=== PATIENT | female | born 1990 | race African-American/Black ===

== ENCOUNTER 2016-07-08 15:45 | Emergency (ER) | payer MEDICAID ==
[~2016-07-08] VITALS: Ht 175.3 cm; Wt 110.0 kg
[2016-07-08] MEDS ORDERED: PREN-88 PO (16:03)
[2016-07-08] MEDS ORDERED: SODIUM CHLORIDE 0.9% 1,000 ML IV ONE (17:13)
[2016-07-08 17:26] LABS: BASOPHILS % 0.8 % (0.0-2.0); DIFFERENTIAL COMMENT 0; EOSINOPHILS % 0.5 % (0.0-5.0); MEAN CORPUSCULAR HEMOGLOBIN 23.5 pg (28.0-32.0); MEAN CORPUSCULAR HGB CONC 32.5 g/dL (31.0-37.0); MEAN CORPUSCULAR VOLUME 72.3 fL (81.0-99.0); MEAN PLATELET VOLUME 9.2 fl (7.4-10.4); MONOCYTES % 4.3 % (2.0-8.0); NEUTROPHILS % 79.4 % (40.0-76.0); PLATELET 293 x1000/uL (130-400); RED BLOOD CELL COUNT 5.54 mill/uL (4.2-5.4); RED CELL DISTRIBUTION WIDTH 16.3 % (11.6-14.6); WHITE BLOOD COUNT 9.4 x1000/uL (4.5-11.0)
[2016-07-08 17:39] LABS: ALANINE AMINOTRANSFERASE 17 IU/L (13-61); ALBUMIN 3.2 g/dL (3.4-5.0); ANION GAP 12; CALCIUM 9.6 mg/dL (8.5-10.1); CARBON DIOXIDE 22 mEq/L (21-32); CHLORIDE 106 mEq/L (98-107); INDEX HEMOLYSI 1 (1-3); INDEX ICTERIC 1 (1-4); INDEX LIPEMIC 1 (1-3); TROPONIN I < 0.02 ng/mL (0.00-0.04); UREA NITROGEN BLOOD 6 mg/dL (7-21); eGFR > 60 mL/min (>60)
[2016-07-08 17:40] LABS: CLARITY URINE CLOUDY (CLEAR); COLOR URINE YELLOW (YELLOW); GLUCOSE URINE NEGATIVE (NEGATIVE); KETONES URINE TRACE (NEGATIVE); LEUKOCYTE ESTERASE URINE TRACE (NEGATIVE); NITRITE URINE NEGATIVE (NEGATIVE); OCCULT BLOOD URINE NEGATIVE (NEGATIVE); PH URINE 5.5 (4.5-8.0); PROTEIN URINE NEGATIVE (NEGATIVE); SPECIFIC GRAVITY URINE 1.032 (1.005-1.030)
[2016-07-08 17:59] LABS: B-HCG QUANTITATIVE 32810 mIU/mL (<3)
[2016-07-08 18:06] LABS: RBC URINE 0-2 /hpf (0-2)
[2016-07-08 18:07] LABS: CALCIUM OXALATE CRYSTALS URINE 3+ /lpf; MUCUS URINE 2+ /lpf (< = 2+); SQUAMOUS EPITHELIAL CELL URINE 2+ /lpf (RARE/1+)
[2016-07-08 18:11] LABS: BACTERIA URINE 1+
[2016-07-08] MEDS ORDERED: CEFTRIAXONE 1 G PREMIX 50 ML IV ONE (18:45)
[2016-07-08 21:03] VITALS: BP 125/80
== END 2016-07-08 21:06 | disposition home or self-care (01) ==
LOC: ER 15:46
DX: O23.01 Infections of kidney in pregnancy, first trimester (principal); N12 Tubulo-interstitial nephritis, not specified as acute or chronic; O26.891 Other specified pregnancy related conditions, first trimester; R55 Syncope and collapse; O16.1 Unspecified maternal hypertension, first trimester; Z3A.12 12 weeks gestation of pregnancy; Z98.890 Other specified postprocedural states
CPT/HCPCS: 36415; 76770; 76801; 76817; 80053; 81001; 81025; 82962; 84484; 84702; 85025; 86850; 86900; 86901; 87086; 93005; 96361; 96365; 99285; J0696; J7030; Z7610

== ENCOUNTER 2018-07-01 05:53 | Observation (INO) | payer MEDICAID ==
[~2018-07-01] VITALS: Ht 175.3 cm; Wt 105.2 kg
[~2018-07-01 05:53] MED LIST: PREN-88 PO
== END 2018-07-01 08:45 | disposition home or self-care (01) ==
LOC: ER 05:53 → 8 EST LDRP 06:39 → UNDOADMOB 06:39 → UNDODISOB 08:45
PROVIDERS: ADMIT Obstetrics & Gynecology; ATTEND Obstetrics & Gynecology
DX: O26.892 Other specified pregnancy related conditions, second trimester (principal); R10.30 Lower abdominal pain, unspecified; R10.2 Pelvic and perineal pain; Z3A.21 21 weeks gestation of pregnancy
CPT/HCPCS: 76805; 99281; G0378

== ENCOUNTER 2018-08-22 15:12 | Emergency (ER) | payer MEDICAID ==
[~2018-08-22] VITALS: Ht 175.3 cm; Wt 107.0 kg
[2018-08-22 16:27] VITALS: BP 130/70
[2018-08-22] MEDS ORDERED: CEFTRIAXONE SODIUM 250 MG/VIAL IM ONE (17:15)
[2018-08-22] MEDS ORDERED: AZITHROMYCIN 500 MG TABLET PO ONE (17:15)
[2018-08-22 17:30] LABS: CLARITY URINE TURBID (CLEAR); COLOR URINE YELLOW (YELLOW); KETONES URINE NEGATIVE (NEGATIVE); LEUKOCYTE ESTERASE URINE 3+ (NEGATIVE); NITRITE URINE NEGATIVE (NEGATIVE); OCCULT BLOOD URINE 1+ (NEGATIVE); PH URINE 6.5 (4.5-8.0); PROTEIN URINE 1+ (NEGATIVE)
[2018-08-22] MEDS ORDERED: LIDOCAINE HCL 1% 20ML VIAL (Pyxis) INJ INFIL ONE (17:45)
== END 2018-08-22 18:04 | disposition home or self-care (01) ==
LOC: ER 15:12
DX: O23.22 Infections of urethra in pregnancy, second trimester (principal); O16.2 Unspecified maternal hypertension, second trimester; O99.332 Smoking (tobacco) complicating pregnancy, second trimester; Z3A.28 28 weeks gestation of pregnancy; Z98.890 Other specified postprocedural states; Z20.2 Contact with and (suspected) exposure to infections with a predominantly sexual mode of transmission
CPT/HCPCS: 81003; 87086; 96372; 99283; J0696

== ENCOUNTER 2018-08-22 15:22 | Observation (INO) | payer MEDICAID | END 2018-08-22 16:00 | disposition home or self-care (01) | LOC: 8 EST LDRP 15:22 | PROVIDERS: ADMIT Obstetrics & Gynecology; ATTEND Obstetrics & Gynecology | DX: O26.893 Other specified pregnancy related conditions, third trimester (principal); N89.8 Other specified noninflammatory disorders of vagina; Z3A.28 28 weeks gestation of pregnancy | CPT/HCPCS: 99281; G0378 ==

== ENCOUNTER 2018-09-21 12:42 | Observation (INO) | payer MEDICAID ==
[~2018-09-21] VITALS: Ht 175.3 cm; Wt 123.4 kg
[2018-09-21] MEDS ORDERED: DEXT 5%/LACTATED RINGERS 1,000 ML IV SCH (13:45)
[2018-09-21 14:24] LABS: BASOPHILS % 0.8 % (0.0-2.0); HEMOGLOBIN. 11.1 g/dL (12.0-16.0); LYMPHOCYTES % 20.7 % (20.0-50.0); MEAN CORPUSCULAR HEMOGLOBIN 24.4 pg (28.0-32.0); MEAN PLATELET VOLUME 9.5 fl (7.4-10.4); MONOCYTES % 7.6 % (2.0-8.0); NEUTROPHILS % 69.9 % (40.0-76.0); PLATELET 189 x1000/uL (130-400); RED BLOOD CELL COUNT 4.53 mill/uL (4.2-5.4); RED CELL DISTRIBUTION WIDTH 15.4 % (11.6-14.6)
[2018-09-21 14:28] LABS: CLARITY URINE CLOUDY (CLEAR); COLOR URINE YELLOW (YELLOW); KETONES URINE TRACE (NEGATIVE); LEUKOCYTE ESTERASE URINE 3+ (NEGATIVE); NITRITE URINE NEGATIVE (NEGATIVE); OCCULT BLOOD URINE 2+ (NEGATIVE); PH URINE 6.5 (4.5-8.0); PROTEIN URINE TRACE (NEGATIVE); SPECIFIC GRAVITY URINE 1.021 (1.005-1.030); UROBILINOGEN URINE 0.2 E.U./dL (0.2-1.0)
[2018-09-21 14:32] LABS: CHLORIDE 109 mEq/L (98-107)
[2018-09-21] MEDS ORDERED: ACETAMINOPHEN 500MG TABLET PO NR (15:00)
[2018-09-21] MEDS ORDERED: POTASSIUM CHLORIDE 20MEQ/PACKET PO NR (15:00)
[2018-09-21] MEDS ORDERED: ONDANSETRON HCL 4MG/2ML INJ IV NR (15:00)
== END 2018-09-21 17:06 | disposition home or self-care (01) ==
LOC: 8 EST LDRP 12:42
PROVIDERS: ADMIT Obstetrics & Gynecology; ATTEND Obstetrics & Gynecology
DX: O62.9 Abnormality of forces of labor, unspecified (principal); O21.2 Late vomiting of pregnancy; O26.893 Other specified pregnancy related conditions, third trimester; R51 Headache; M54.9 Dorsalgia, unspecified; R10.13 Epigastric pain; Z3A.32 32 weeks gestation of pregnancy
CPT/HCPCS: 36415; 80053; 81003; 84550; 85025; 96374; 99281; G0378; J2405; 96360; 96366; 96375; J7121